=== PATIENT | male | born 1990 | race Asian ===

== ENCOUNTER 2018-07-16 21:20 | Emergency (ER) | payer OTHER ==
[2018-07-16] MEDS ORDERED: ADACEL/BOOSTRIX VACCINE (DIPHTH/PERTUSS/ACELL/TETANUS)0.5ML SYR (90715) IM ONE (21:45)
[2018-07-16] MEDS ORDERED: ACETAMINOPHEN 325 MG TAB PO ONE (22:30)
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
[2018-07-17 00:46] VITALS: BP 126/76
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
== END 2018-07-17 00:57 | disposition short-term general hospital (02) ==
LOC: M ED 21:20
DX: S02.31XA Fracture of orbital floor, right side, initial encounter for closed fracture (principal); S02.2XXA Fracture of nasal bones, initial encounter for closed fracture; S04.011A Injury of optic nerve, right eye, initial encounter; W50.0XXA Accidental hit or strike by another person, initial encounter; Y92.148 Other place in prison as the place of occurrence of the external cause; Y93.67 Activity, basketball